=== PATIENT | female | born 1975 | race Caucasian/White ===

== ENCOUNTER 2021-02-07 19:44 | Emergency (ER) | payer OTHER ==
[2021-02-07] MEDS ORDERED: Morphine 4 MG/ML VIAL ONE (20:04)
[2021-02-07] MEDS ORDERED: Boostrix 0.5 ML (Tdap) VIAL ONE (20:04)
== END 2021-02-07 20:29 | disposition home or self-care (01) ==
LOC: ERS 19:44
DX: S01.81XA Laceration without foreign body of other part of head, initial encounter (principal); S40.022A Contusion of left upper arm, initial encounter; S80.01XA Contusion of right knee, initial encounter; V86.99XA Unspecified occupant of other special all-terrain or other off-road motor vehicle injured in nontraffic accident, initial encounter; Z23 Encounter for immunization
CPT/HCPCS: 12011; 90471; 90715; 96374; J2270